=== PATIENT | male | born 1955 | race Caucasian/White ===

== ENCOUNTER 2019-03-29 11:21 | Emergency (ER) | payer OTHER ==
[2019-03-29] MEDS: DIPHTH/TET/ACEL PERTUSS (ADULT) 0.5 ML VIAL IM* (14:55)
[2019-03-29] MEDS: LIDOCAINE 1% (MPF) 5 ML VIAL INJ (14:56)
== END 2019-03-29 15:54 | disposition home or self-care (01) ==
LOC: FTE 11:21
DX: S01.81XA Laceration without foreign body of other part of head, initial encounter (principal); S01.21XA Laceration without foreign body of nose, initial encounter; S09.90XA Unspecified injury of head, initial encounter; W01.0XXA Fall on same level from slipping, tripping and stumbling without subsequent striking against object, initial encounter; Y92.9 Unspecified place or not applicable; Z23 Encounter for immunization; Z79.82 Long term (current) use of aspirin
CPT/HCPCS: 12011; 70450; 82962; 90471; 90715; 99284-25